=== PATIENT | male | born 1960 | race Caucasian/White ===

== ENCOUNTER → 2023-07-10 15:22 | Outpatient (BNVA) | payer OTHER, SELFPAY | PROVIDERS: PCP Internal Medicine; Referring Provider Internal Medicine; Visit Provider Dermatology | DX: L02.821 Furuncle of head [any part, except face] (principal); L57.0 Actinic keratosis; L57.8 Other skin changes due to chronic exposure to nonionizing radiation; L81.4 Other melanin hyperpigmentation; L28.1 Prurigo nodularis | CPT/HCPCS: 17000; 99204 ==

== ENCOUNTER → 2024-07-30 14:28 | Outpatient (BNVA) | payer OTHER, SELFPAY | PROVIDERS: PCP Internal Medicine; Visit Provider Nurse Practitioner Family | DX: L57.0 Actinic keratosis (principal); L02.821 Furuncle of head [any part, except face]; L02.12 Furuncle of neck; L28.1 Prurigo nodularis; L57.8 Other skin changes due to chronic exposure to nonionizing radiation | CPT/HCPCS: 17000; 99214 ==